=== PATIENT | male | born 1985 | race Caucasian/White ===

== ENCOUNTER → 2020-11-26 | Outpatient (CLI) | payer OTHER | LOC: KOH-I 08:47 | DX: S92.342A Displaced fracture of fourth metatarsal bone, left foot, initial encounter for closed fracture (principal) | CPT/HCPCS: 73630 ==

== ENCOUNTER → 2021-01-08 | Outpatient (CLI) | payer OTHER | LOC: KOH-I 09:53 | DX: S92.342A Displaced fracture of fourth metatarsal bone, left foot, initial encounter for closed fracture (principal) | CPT/HCPCS: 73630 ==